=== PATIENT | male | born 1995 | race African-American/Black ===

== ENCOUNTER 2016-10-12 11:59 | Emergency (ER) | payer SELFPAY ==
--- NOTE | 2016-10-12 13:20 | ER Document Report ---
ED Neck/Back Problem - General Chief Complaint: Back Pain Stated Complaint: BODY PAIN Time Seen by Provider: 10/12/16 13:07 Notes: 21 yo male c/o pain to neck and upper back x 2 days. pt reports falling off a boat 2 days ago. pain started the next day. denies hitting head or LOC. denies radiculopathy, paresthesia, bowel/bladder change. walks without difficulty TRAVEL OUTSIDE OF THE [place] IN LAST 30 DAYS: No - HPI Onset: Chronic - pt as been having pain in neck and shoulders x 8 mos since work accident - box fell on shoulder Quality of pain: Achy Recent injury: Yes Associated symptoms: Other - headache Exacerbated by: Movement of neck Relieved by: Nothing Similar symptoms previously: Yes Recently seen / treated by doctor: No - Related Data Allergies/Adverse Reactions: Shellfish * [Shellfish] Allergy (Verified 02/05/14 00:28) Past Medical History - General Information source: Patient - Social History Smoking Status: Current Every Day Smoker Frequency of alcohol use: None Drug Abuse: None Occupation: [employer] Lives with: Family Family History: Reviewed & Not Pertinent Patient has suicidal ideation: No Patient has homicidal ideation: No Pulmonary Medical History: Reports: Hx Pneumonia Renal/ Medical History: Denies: Hx Peritoneal Dialysis Skin Medical History: Reports Hx Cellulitis - Immunizations Immunizations up to date: No Hx Diphtheria, Pertussis, Tetanus Vaccination: No Review of Systems - Review of Systems Constitutional: No symptoms reported EENT: No symptoms reported Cardiovascular: No symptoms reported Respiratory: No symptoms reported Gastrointestinal: No symptoms reported Genitourinary: No symptoms reported Male Genitourinary: No symptoms reported Musculoskeletal: See HPI, Back pain, Neck pain Skin: No symptoms reported Hematologic/Lymphatic: No symptoms reported Neurological/Psychological: No symptoms reported Physical Exam - Vital signs Vitals: Temp Pulse Resp BP Pulse Ox 98.7 F 92 16 138/79 H 100 10/12/16 12:12 10/12/16 12:12 10/12/16 12:12 10/12/16 12:12 10/12/16 12:12 Interpretation: Normal - General General appearance: Appears well, Alert In distress: Mild - HEENT Head: Normocephalic, Atraumatic Eyes: Normal Conjunctiva: Normal Extraocular movements intact: Yes Pupils: PERRL Neck: Other - + suboccipital trapezius tenderness - Respiratory Respiratory status: No respiratory distress Chest status: Nontender Breath sounds: Normal Chest palpation: Normal - Cardiovascular Rhythm: Regular Heart sounds: Normal auscultation Murmur: No - Abdominal Inspection: Normal Distension: No distension Bowel sounds: Normal Tenderness: Nontender Organomegaly: No organomegaly - Back Back: Normal, Tender - + trapezius tenderness. No: CVA tenderness, Vertebra tenderness - Extremities General upper extremity: Normal inspection, Nontender, Normal color, Normal ROM , Normal temperature General lower extremity: Normal inspection, Nontender, Normal color, Normal ROM , Normal temperature, Normal weight bearing. No: Jami's sign - Neurological Neuro grossly intact: Yes Cognition: Normal Orientation: AAOx4 [place] Coma Scale Eye Opening: Spontaneous [place] Coma Scale Verbal: Oriented [place] Coma Scale Motor: Obeys Commands [place] Coma Scale Total: 15 Speech: Normal Motor strength normal: LUE, RUE, LLE, RLE Sensory: Normal - Psychological Associated symptoms: Normal affect, Normal mood - Skin Skin Temperature: Warm Skin Moisture: Dry Skin Color: Normal Course - Vital Signs Vital signs: Temp Pulse Resp BP Pulse Ox 98.7 F 92 16 138/79 H 100 10/12/16 12:12 10/12/16 12:12 10/12/16 12:12 10/12/16 12:12 10/12/16 12:12 Discharge - Discharge Clinical Impression: Muscle strain Condition: Stable Disposition: HOME, SELF-CARE Instructions: Ice Packs ([facility]), Warm Packs ([facility]), Muscle Strain ([facility]), Muscle Relaxers ([facility]), Ibuprofen (General) ([facility]), Oral Narcotic Medication ([facility]) Additional Instructions: Take meds as prescribed Prescriptions: Cyclobenzaprine HCl [Flexeril 10 Mg Tablet] 10 mg PO Q6H PRN #15 tablet PRN Reason: Hydrocodone/Acetaminophen [[place] 5-325 mg Tablet] 1 tab PO Q4 PRN #15 tablet PRN Reason: Ibuprofen [Motrin 800 Mg Tablet] 800 mg PO Q6H #20 tablet
[2016-10-12 13:50] VITALS: BP 132/72
== END 2016-10-12 13:25 | disposition home or self-care (01) ==
LOC: ER 11:59
DX: T14.8 Other injury of unspecified body region (principal); M54.89 Other dorsalgia; M54.2 Cervicalgia; V92.09XA Drowning and submersion due to fall off unspecified watercraft, initial encounter; R51 Headache; Z91.013 Allergy to seafood; F17.200 Nicotine dependence, unspecified, uncomplicated
CPT/HCPCS: 99283

== ENCOUNTER 2018-06-06 18:40 | Emergency (ER) | payer SELFPAY ==
[2018-06-06] MEDS ORDERED: CIPROFLOXACIN HCL/DEXAMETH OTIC DROP 7.5 ML AS ONE (19:59)
[2018-06-06] MEDS ORDERED: IBUPROFEN 800 MG TABLET PO ONE (20:05)
--- NOTE | 2018-06-06 20:14 | ER Document Report ---
ED ENT - General Mode of Arrival: Ambulatory Information source: Patient TRAVEL OUTSIDE OF THE [place] IN LAST 30 DAYS: No - HPI Patient complains to provider of: Ear problem - Left ear pain. He states there was yellow drainage from the ear yesterday but now the ear is swollen. Onset: Other - 3 days Onset/Duration: Gradual, Worse Severity: Moderate Pain Level: 4 Context: Recent Illness Location of pain: Ears - Left ear Associated symptoms: Ear pain, Ear drainage Similar symptoms previously: No Recently seen / treated by doctor: No - General Chief Complaint: Ear Pain Stated Complaint: EAR/FACIAL PAIN Time Seen by Provider: 06/06/18 19:52 Notes: 23-year-old male presented to ED for complaint of left ear pain. He states that is making the whole left side of his face hurt. He states he has had the pain for 3 days but he had to work and he came in tonight after he got off work. Patient states that the pain is been getting progressively worse. Patient states he has never had pain like this in the past. (HOLLEY ABURTO) - Related Data Allergies/Adverse Reactions: Shellfish * [Shellfish] Allergy (Verified 06/06/18 18:41) Past Medical History - General Information source: Patient - Social History Smoking Status: Current Every Day Smoker Cigarette use (# per day): Yes - 1/2 pack/day Chew tobacco use (# tins/day): No Smoking Education Provided: Yes - 4 minutes Frequency of alcohol use: Social Drug Abuse: Marijuana Lives with: Family - Cousin Family History: Reviewed & Not Pertinent Patient has suicidal ideation: No Patient has homicidal ideation: No - Past Medical History Cardiac Medical History: Reports: None Pulmonary Medical History: Reports: Hx Asthma - as a child, Hx Pneumonia EENT Medical History: Reports: None Neurological Medical History: Reports: None Endocrine Medical History: Reports: None Renal/ Medical History: Reports: None Malignancy Medical History: Reports None GI Medical History: Reports: None Musculoskeletal Medical History: Reports None Skin Medical History: Reports Hx Cellulitis Psychiatric Medical History: Reports: None Traumatic Medical History: Reports: None Infectious Medical History: Reports: None Past Surgical History: Reports: Hx Orthopedic Surgery - finger - Immunizations Immunizations up to date: No Hx Diphtheria, Pertussis, Tetanus Vaccination: No Review of Systems - Review of Systems Constitutional: No symptoms reported EENT: Ear pain, Ear discharge Cardiovascular: No symptoms reported Respiratory: No symptoms reported Gastrointestinal: No symptoms reported Genitourinary: No symptoms reported Male Genitourinary: No symptoms reported Musculoskeletal: No symptoms reported Skin: No symptoms reported Hematologic/Lymphatic: No symptoms reported Neurological/Psychological: No symptoms reported -: Yes All other systems reviewed and negative Physical Exam - Vital signs Interpretation: Normal - General General appearance: Appears well, Alert - HEENT Head: Normocephalic, Atraumatic Eyes: Normal Pupils: PERRL Ears: Other - Pain with any movement to any part of the ear External canal: Erythema, Swollen, Other - Minimal yellow drainage Tympanic membrane: Other - Unable to visualize the left tympanic membrane due to the swelling Sinus: Normal Nasal: Swelling, Clear rhinorrhea Mouth/Lips: Normal Mucous membranes: Normal Pharynx: Normal Neck: Posterior cervical chain - Respiratory Respiratory status: No respiratory distress Chest status: Nontender Breath sounds: Normal Chest palpation: Normal - Cardiovascular Rhythm: Regular Heart sounds: Normal auscultation Murmur: No - Abdominal Inspection: Normal Distension: No distension Bowel sounds: Normal Tenderness: Nontender Organomegaly: No organomegaly - Back Back: Normal, Nontender - Extremities General upper extremity: Normal inspection, Nontender, Normal color, Normal ROM, Normal temperature General lower extremity: Normal inspection, Nontender, Normal color, Normal ROM, Normal temperature, Normal weight bearing. No: Jami's sign - Neurological Neuro grossly intact: Yes Cognition: Normal Orientation: AAOx4 [place] Coma Scale Eye Opening: Spontaneous [place] Coma Scale Verbal: Oriented [place] Coma Scale Motor: Obeys Commands [place] Coma Scale Total: 15 Speech: Normal Motor strength normal: LUE, RUE, LLE, RLE Sensory: Normal - Psychological Associated symptoms: Normal affect, Normal mood - Skin Skin Temperature: Warm Skin Moisture: Dry Skin Color: Normal - Vital signs Vitals: Temp Pulse Resp BP Pulse Ox 98.0 F 68 18 125/70 100 06/06/18 19:16 06/06/18 19:16 06/06/18 19:16 06/06/18 19:16 06/06/18 19:16 Course - Re-evaluation Re-evalutation: 06/06/18 21:31 Patient was treated with ibuprofen for the pain and Ciprodex with ear to the left ear for his otitis externa. Patient was instructed to put 4 drops in the left ear twice a day for the next week and follow-up with the ENT if ear is not starting to improve by tomorrow. Name and number of ENT was provided for patient. Patient verbalized understanding and agreement with treatment plan. (HOLLEY ABURTO) 06/07/18 20:30 I was personally available for consultation during this patient's worse. I did not personally evaluate the patient. (ISABEL ALVARES) - Vital Signs Vital signs: Temp Pulse Resp BP Pulse Ox 98.9 F 86 18 118/61 100 06/06/18 20:21 06/06/18 20:21 06/06/18 20:21 06/06/18 20:21 06/06/18 20:21 Discharge - Discharge Clinical Impression: Otitis externa Qualifiers: Otitis externa type: unspecified type Chronicity: acute Laterality: left Qualified Code(s): H60.502 - Unspecified acute noninfective otitis externa, left ear Condition: Stable Disposition: HOME, SELF-CARE Instructions: Family Physicians / Practices Additional Instructions: OTITIS EXTERNA: You have otitis externa -- an infection of the outer ear canal. This can be very painful. It's sometimes called "swimmer's ear," because it often occurs after prolonged water exposure. Many things, such as earwax and dirt in the ear, can contribute to it. The usual treatment is antibiotic/antiinflammatory ear drops. Occasionally, a wick will be placed in the ear to draw in the medicine. If the infection is severe, an oral antibiotic may be prescribed. Pain medication is often needed. Avoid getting water in the ear. Outer ear infections often take longer to heal than you might expect. Some tenderness and ache in the ear may persist for about two weeks. See your physician if you fail to improve as expected. Call the doctor at once if you develop fever, increasing swelling (particularly if it makes your ear "poke out"), severe headache, stiff neck, or decreased hearing. USE OF EAR DROPS: Your ear drops won't do much good if they don't get all the way in. To help the ear drops penetrate all the way to the ear drum, use the following technique. If you encounter problems of any kind, notify the physician. (1) Lay your head sideways on a pillow. (2) Place the dropper tip just barely inside the ear canal, almost touching the bottom side of the canal. The liquid is tolerated better on the bottom of the canal. (3) Squeeze out the appropriate amount of medicine, and remove the dropper. (4) Grab the back of the ear (just behind the ear canal) between your index finger and thumb. (5) Tug up, then let the ear drop back. Repeat several times. This pumps the medicine down. (6) Wait five minutes, then place a cotton ball in the ear canal to catch and hold the medicine. USING EAR DROPS WITH A WICK: A wick may be placed in your ear. This keeps the medicine in constant contact with the ear canal. You'll need to put fresh medicine into the wick. Follow these instructions. If you encounter problems of any kind, notify the physician. (1) Lay your head sideways on a pillow. (2) Place the dropper tip so it's almost touching the wick. (3) Squeeze out the appropriate amount of medicine. (4) Wait a minute for the medicine to soak in before sitting up. (5) Wipe away any extra medicine from your ear. CIPROFLOXACIN: You have been given an antibacterial agent, ciprofloxacin (Cipro). This medicine is not related to the penicillins, sulfas, cephalosporins, or tetracyclines. It is often given to patients who are allergic to these drugs. It has been chosen for you either because other drugs are not appropriate, or because of the nature of your problem. Cipro should not be taken with antacids, as these can decrease its effectiveness. It can be taken without regard to meals. CIPRO SHOULD NOT BE TAKEN BY CHILDREN, NURSING WOMEN, OR WOMEN. Although Cipro is usually well-tolerated, common side effects can include nausea and diarrhea. Contact your doctor if you experience any unusual symptoms while on this medication, such as joint pain or swelling, shortness of breath, wheezing, faintness, or hives. USE OF ACETAMINOPHEN (Tylenol): Acetaminophen may be taken for pain relief or fever control. It's much safer than aspirin, offering a wider range of "safe" dosages. It is safe during . Some brand names are Tylenol, Panadol, Datril, Anacin 3, Tempra, and Liquiprin. Acetaminophen can be repeated every four hours. The following are maximum recommended dosages: WEIGHT Dose Drops Elixir Chewable(80mg) (LBS.) drprs=droppers tsp=teaspoon 6 40 mg 0.4 ml (1/2) 6-11 80 mg 0.8 ml (full) tsp 1 tab 12-16 120 mg 1 1/2 drprs 3/4 tsp 1 1/2 tabs 17-23 160 mg 2 drprs 1 tsp 2 tabs 24-30 240 mg 3 drprs 1 1/2 tsp 3 tabs 30-35 320 mg 2 tsp 4 tabs 36-41 360 mg 2 1/4 tsp 4 1/2 tabs 42-47 400 mg 2 1/2 tsp 5 tabs 48-53 480 mg 3 tsp 6 tabs 54-59 520 mg 3 1/4 tsp 6 1/2 tabs 60-64 560 mg 3 1/2 tsp 7 tabs 65-70 600 mg 3 3/4 tsp 7 1/2 tabs 71-76 640 mg 4 tsp 8 tabs 77-82 720 mg 4 1/2 tsp 9 tabs 83-88 800 mg 5 tsp 10 tabs >89 pounds or adults 650 mg to 900 mg Acetaminophen can be repeated every four hours. Maximum dose not to exceed 4000 mg a day. These maximum recommended dosages are slightly higher than the dosages written on the product container, but these dosages are very safe and below the toxic dosage for acetaminophen. Ibuprofen Ibuprofen is an excellent, safe drug for pain control. In addition, it has potent antiinflammatory effects which are beneficial, especially in the treatment of injuries, arthritis, or tendonitis. It's best to take ibuprofen with food. Persons with ulcer disease or allergy to aspirin should notify their physician of this before taking ibuprofen. Take the medication exactly as prescribed. Don't take additional doses unless instructed to do so by your doctor. If you develop wheezing, shortness of breath, hives, faintness, stomach pain, vomiting, or dark black stools, return for re-evaluation at once. FOLLOW-UP CARE: If you have been referred to a physician for follow-up care, call the physicians office for an appointment as you were instructed or within the next two days. If you experience worsening or a significant change in your symptoms, notify the physician immediately or return to the Emergency Department at any time for re-evaluation. Prescriptions: Ciprofloxacin HCl/Dexameth [Ciprodex Otic Suspension] 4 drop LFT_EAR BID #1 bottle Forms: Smoking Cessation Education, Return to Work Referrals: ABDIEL RIZVI DO [ASSOCIATE] - Follow up as needed
[2018-06-06 20:23] VITALS: BP 118/61
== END 2018-06-06 20:28 | disposition home or self-care (01) ==
LOC: ER 18:40
DX: H60.502 Unspecified acute noninfective otitis externa, left ear (principal); H92.02 Otalgia, left ear; H92.12 Otorrhea, left ear; H93.8X2 Other specified disorders of left ear; R51 Headache; F17.210 Nicotine dependence, cigarettes, uncomplicated; J45.909 Unspecified asthma, uncomplicated
CPT/HCPCS: 99406; 99283; J3490

== ENCOUNTER 2018-06-08 16:14 | Emergency (ER) | payer SELFPAY ==
[2018-06-08 16:50] VITALS: BP 127/60
== END 2018-06-08 17:39 | disposition left against medical advice (07) ==
LOC: ER 16:14
DX: Z53.21 Procedure and treatment not carried out due to patient leaving prior to being seen by health care provider (principal)

== ENCOUNTER 2019-03-19 19:13 | Emergency (ER) | payer SELFPAY ==
[2019-03-19 19:21] VITALS: BP 131/62
[2019-03-19] MEDS ORDERED: ACETAMINOPHEN 325 MG TABLET PO ONE (19:36)
--- NOTE | 2019-03-19 20:42 | ER Document Report ---
ED Fall - General Chief Complaint: Fall Stated Complaint: FALL Time Seen by Provider: 03/19/19 19:44 Mode of Arrival: Ambulatory Information source: Patient TRAVEL OUTSIDE OF THE [place] IN LAST 30 DAYS: No - HPI Notes: Patient states he was walking at [facility] when he slipped on some oil and a food now. He states when he slipped he landed on his left side. He states he is not having left elbow pain and left posterior neck pain. These pains are both moderate. They are constant. They are worse with movement and better with rest. The elbow pain does radiate up the left arm. Patient denies any loss of consciousness. No abdominal or chest pain. - Related data Allergies/Adverse Reactions: Shellfish * [Shellfish] Allergy (Verified 03/19/19 19:38) Past Medical History - Social History Smoking Status: Current Every Day Smoker Frequency of alcohol use: Occasional Drug Abuse: None Family History: Reviewed & Not Pertinent Patient has suicidal ideation: No Patient has homicidal ideation: No Pulmonary Medical History: Reports: Hx Asthma - as a child, Hx Pneumonia Renal/ Medical History: Denies: Hx Peritoneal Dialysis Skin Medical History: Reports Hx Cellulitis Past Surgical History: Reports: Hx Orthopedic Surgery - finger - Immunizations Immunizations up to date: No Hx Diphtheria, Pertussis, Tetanus Vaccination: No Review of Systems - Review of Systems Constitutional: denies: Chills, Fever Cardiovascular: denies: Chest pain, Palpitations Respiratory: denies: Cough, Short of breath -: Yes All other systems reviewed and negative Physical Exam - Vital signs Vitals: Temp Pulse Resp BP Pulse Ox 97.7 F 64 14 131/62 H 98 03/19/19 19:19 03/19/19 19:19 03/19/19 19:19 03/19/19 19:19 03/19/19 19:19 Interpretation: Normal - General General appearance: Appears well, Alert - HEENT Head: Normocephalic, Atraumatic Eyes: Normal Pupils: PERRL Neck: Other - Cervical spine is diffusely tender to palpation without step-off or deformity - Respiratory Respiratory status: No respiratory distress Chest status: Nontender Breath sounds: Normal Chest palpation: Normal - Cardiovascular Rhythm: Regular Heart sounds: Normal auscultation Murmur: No - Abdominal Inspection: Normal Distension: No distension Bowel sounds: Normal Tenderness: Nontender Organomegaly: No organomegaly - Back Back: Normal, Nontender - Extremities General upper extremity: Normal inspection, Tender - Left elbow is tender to palpation, Normal color, Normal ROM, Normal temperature General lower extremity: Normal inspection, Nontender, Normal color, Normal ROM, Normal temperature, Normal weight bearing - Neurological Neuro grossly intact: Yes Cognition: Normal Orientation: AAOx4 [place] Coma Scale Eye Opening: Spontaneous [place] Coma Scale Verbal: Oriented [place] Coma Scale Motor: Obeys Commands [place] Coma Scale Total: 15 Speech: Normal Motor strength normal: LUE, RUE, LLE, RLE Sensory: Normal - Psychological Associated symptoms: Normal affect, Normal mood - Skin Skin Temperature: Warm Skin Moisture: Dry Skin Color: Normal Course - Re-evaluation Re-evalutation: 03/19/19 20:51 Patient presents after a fall. I see no evidence of bony injury in the left elbow or cervical spine. These are the 2 main places of pain the patient complained of after the fall. I feel the patient is safe for discharge home. - Vital Signs Vital signs: Temp Pulse Resp BP Pulse Ox 97.7 F 64 14 131/62 H 98 03/19/19 19:19 03/19/19 19:19 03/19/19 19:19 03/19/19 19:19 03/19/19 19:19 - Diagnostic Test Radiology reviewed: Image reviewed, Reports reviewed Discharge - Discharge Clinical Impression: Fall Qualifiers: Encounter type: initial encounter Qualified Code(s): W19.XXXA - Unspecified fall, initial encounter Left elbow contusion Qualifiers: Encounter type: initial encounter Qualified Code(s): S50.02XA - Contusion of left elbow, initial encounter Acute cervical sprain Qualifiers: Encounter type: initial encounter Qualified Code(s): S13.9XXA - Sprain of joints and ligaments of unspecified parts of neck, initial encounter Condition: Stable Disposition: HOME, SELF-CARE Instructions: Contusion ([facility]), Neck Injury (Cervical Strain) ([facility]) Additional Instructions: Please call your primary care physician or the [facility] as soon as possible to arrange follow-up. Prescriptions: Tramadol HCl [Ultram] 50 mg PO Q6 PRN 3 Days #12 tablet PRN Reason:
--- NOTE | 2019-03-19 20:49 | RADIOLOGY REPORT (SQ) ---
EXAM DESCRIPTION: Left elbow [facility]Lex: XR ELBOW 1-2 VIEWS Views: 2 CLINICAL HISTORY: 24 years Male, fall/pain COMPARISON: None. FINDINGS: Negative for acute fracture, dislocation, or radiopaque foreign body. No joint effusion. IMPRESSION: 1. No acute findings.
--- NOTE | 2019-03-19 20:50 | RADIOLOGY REPORT (SQ) ---
EXAM DESCRIPTION: RadLex: XR CERVICAL SPINE 2 - 3 VIEWS Views: 3, AP, lateral, odontoid CLINICAL HISTORY: 24 years Male, fall/pain COMPARISON: None. FINDINGS: There is a slight reversal of the normal cervical lordosis, but no focal subluxation. No prevertebral edema. No acute fracture. Odontoid view is normal. IMPRESSION: 1. No acute fracture or subluxation
== END 2019-03-19 22:07 | disposition home or self-care (01) ==
LOC: ER 19:13
DX: S13.9XXA Sprain of joints and ligaments of unspecified parts of neck, initial encounter (principal); S50.02XA Contusion of left elbow, initial encounter; M25.522 Pain in left elbow; M54.2 Cervicalgia; W01.0XXA Fall on same level from slipping, tripping and stumbling without subsequent striking against object, initial encounter; Y92.512 Supermarket, store or market as the place of occurrence of the external cause; F17.200 Nicotine dependence, unspecified, uncomplicated; J45.909 Unspecified asthma, uncomplicated
CPT/HCPCS: 72040

== ENCOUNTER 2019-03-27 09:12 | Emergency (ER) | payer SELFPAY ==
[2019-03-27] MEDS ORDERED: NAPROXEN 250 MG TABLET PO ONE (09:31)
--- NOTE | 2019-03-27 09:34 | ER Document Report ---
HPI - HPI Time Seen by Provider: 03/27/19 09:20 Context: Patient is a 24-year-old male who presents to the emergency department 8 days post fall with a complaint of right knee pain. Patient reports 8 days ago he slipped on liquid while walking into [facility] and fell backwards. Patient states he was seen in the emergency department that day. Patient denies loss of consciousness or vomiting afterwards. Patient reports stiffness in his back and his neck. Patient reports since then he is developed new right knee pain. Patient reports this is worse when walking, going up and down the steps. Patient states he is able to walk but this seems to make it worse. Patient is concerned about a possible meniscus tear. - REPRODUCTIVE Reproductive: DENIES: : Past Medical History - General Information source: Patient - Social History Smoking Status: Unknown if Ever Smoked Lives with: Spouse/Significant other Family History: Reviewed & Not Pertinent - Past Medical History Cardiac Medical History: Reports: None Pulmonary Medical History: Reports: Hx Asthma - as a child, Hx Pneumonia EENT Medical History: Reports: None Neurological Medical History: Reports: None Endocrine Medical History: Reports: None Renal/ Medical History: Reports: None. Denies: Hx Peritoneal Dialysis Malignancy Medical History: Reports None GI Medical History: Reports: None Musculoskeletal Medical History: Reports None Skin Medical History: Reports Hx Cellulitis Psychiatric Medical History: Reports: None Traumatic Medical History: Reports: None Infectious Medical History: Reports: None Past Surgical History: Reports: Hx Orthopedic Surgery - finger - Immunizations Immunizations up to date: No Hx Diphtheria, Pertussis, Tetanus Vaccination: No Vertical Provider Document - CONSTITUTIONAL Agree With Documented VS: Yes Exam Limitations: No Limitations General Appearance: No Apparent Distress - INFECTION CONTROL TRAVEL OUTSIDE OF THE [place] IN LAST 30 DAYS: No - HEENT HEENT: Atraumatic, Normocephalic, PERRLA - NECK Neck: Normal Inspection - RESPIRATORY Respiratory: Breath Sounds Normal, No Respiratory Distress - CARDIOVASCULAR Cardiovascular: Regular Rate, Regular Rhythm - GI/ABDOMEN Gastrointestinal: Abdomen Soft, Abdomen Non-Tender - MUSCULOSKELETAL/EXTREMETIES Musculoskeletal/Extremeties: Tender, No Edema Notes: No instability noted of the right patella. Patient does have tenderness to the medial aspect of the right knee. There is no obvious ecchymosis or edema. No erythema. Patient has good flexion extension of the right knee. Patient is able to ambulate. - NEURO Level of Consciousness: Awake, Alert, Appropriate - DERM Integumentary: Warm, Dry, No Rash Course - Re-evaluation Re-evalutation: 03/27/19 12:11 X-ray negative. Patient was placed in [place] wrap and crutches. Patient does not need a work note. Ice elevate take naproxen as needed for pain. I did give the patient multiple orthopedic referrals. - Vital Signs Vital signs: Temp Pulse Resp BP Pulse Ox 98.1 F 67 16 129/53 H 03/27/19 09:22 03/27/19 09:22 03/27/19 09:22 03/27/19 09:22 - Diagnostic Test Radiology reviewed: Reports reviewed Radiology results interpreted by me: 03/27/19 10:52 Knee X-Ray 03/27/19 09:28 IMPRESSION: NEGATIVE STUDY OF THE RIGHT KNEE. NO RADIOGRAPHIC EVIDENCE OF ACUTE INJURY. Discharge - Discharge Clinical Impression: Fall Qualifiers: Encounter type: subsequent encounter Qualified Code(s): W19.XXXD - Unspecified fall, subsequent encounter Right knee pain Qualifiers: Chronicity: acute Qualified Code(s): M25.561 - Pain in right knee Condition: Stable Disposition: HOME, SELF-CARE Instructions: Use of Crutches ([facility]), Ice & Elevation ([facility]), Suspected Internal Knee Injury ([facility]), Sprained Knee ([facility]) Additional Instructions: Sprained Knee Your sprained knee results from a stretching or tearing of the ligaments which support the joint. This often results from a bending stress -- such as a twisting fall while skiing or a "clip" while playing football. The ligaments will require time and protection to heal adequately. A knee sprain can be quite serious, and should be taken seriously. The usual treatment is splinting of the knee, ice packs, and elevation. You shouldn't walk on the leg if weightbearing is painful. Unless the sprain is obviously a minor one, follow-up exam is very important. The degree of ligament damage often cannot be fully assessed at first due to muscle spasm and pain. Your treatment plan may change based on the physician's findings during your follow-up examination. Call the doctor at once if there is severe swelling, increasing pain, numbness, or other alarming symptoms. Prescriptions: Naproxen 500 mg PO BID PRN 7 Days #14 tablet PRN Reason: Referrals: GUILLERMO EVANS MD [ACTIVE PROVISIONAL STAFF] - Follow up as needed MARCY CHAUHAN MD [ACTIVE STAFF] - Follow up as needed PETE DANIELS DO [ACTIVE STAFF] - Follow up as needed
--- NOTE | 2019-03-27 10:14 | RADIOLOGY REPORT (SQ) ---
EXAM DESCRIPTION: KNEE RIGHT 4 VIEWS COMPLETED DATE/TIME: 03/27/2019 10:06 am REASON FOR STUDY: fall 8 days ago, right knee pain COMPARISON: None. NUMBER OF VIEWS: Four views. TECHNIQUE: AP, lateral, and both oblique radiographic images acquired of the right knee. LIMITATIONS: None. FINDINGS: MINERALIZATION: Normal. BONES: No acute fracture or dislocation. No worrisome bone lesions. JOINT: No effusion. SOFT TISSUES: No soft tissue swelling. No radio-opaque foreign body. OTHER: No other significant finding. IMPRESSION: NEGATIVE STUDY OF THE RIGHT KNEE. NO RADIOGRAPHIC EVIDENCE OF ACUTE INJURY. TECHNICAL DOCUMENTATION: JOB ID: [id number] [employer]- All Rights Reserved Reading location - IP/workstation name: [email or web address]
[2019-03-27 11:09] VITALS: BP 138/72
== END 2019-03-27 11:08 | disposition home or self-care (01) ==
LOC: ER 09:12
DX: M25.561 Pain in right knee (principal); W01.0XXA Fall on same level from slipping, tripping and stumbling without subsequent striking against object, initial encounter; Y93.89 Activity, other specified; Y92.512 Supermarket, store or market as the place of occurrence of the external cause; M43.6 Torticollis
CPT/HCPCS: 99283